=== PATIENT | female | born 1985 | race Caucasian/White ===

== ENCOUNTER 2017-05-04 09:48 | Emergency (ER) | payer OTHER ==
--- NOTE | 2017-05-04 11:06 | RAD ---
Indication: Lateral RIGHT knee pain following rugby injury. Pain and decreased range of motion. Comparison: No relevant prior exams available on the [facility] PACS for comparison. Technique: AP and lateral views RIGHT knee. Report: Small joint effusion. No cortical disruption or suspicious trabecular irregularity to suggest fracture. Unremarkable soft tissue contours. IMPRESSION: Small joint effusion without additional finding.
[2017-05-04 11:46] VITALS: BP 113/64
--- NOTE | 2017-05-04 11:51 | ED ---
Lower Extremity - HPI Summary HPI Summary: Patient is a 32yo presenting with right knee pain after hyperextending the knee yesterday afternoon during a game of rubgy. She states she was able to walk on it immediately after until about 30 minutes later. At which time while she continued to play, the knee "gave out" on her and she has been unable to ambulate since. She feels laxity in the joint and pain over the lateral knee while standing, and denies pain while at rest. Multiple bruises noted over bilateral legs. She denies any other pain. Denies hip or ankle injury. Pulses +2 bilaterally and cap refill < 2 sec. Denies numbness, tingling, or temperature changes to the area. She is otherwise healthy. Has never injured the knee before. Denies previous surgeries on her extremities. Thorough physical exam was performed, focusing on knee special tests. Pain on palpation over lateral aspect and superior aspect of knee with mild amount of effusion. Due to patient pain around injury, physical exam was limited. Valgus and varus force without pain. No posterior sag sign, -posterior drawer test, - anterior drawer test. Quadriceps active test negative. Mcmurrys test not performed d/ t patients instability. Laxity in the joint noted. No lesion or disruption of skin is seen. Unable to bear weight. - History of Current Complaint Chief Complaint: EDExtremityLower Stated Complaint: RIGHT KNEE PAIN Time Seen by Provider: 05/04/17 10:05 Hx Obtained From: Patient Mechanism Of Injury: Twisted Onset of Pain: Immediate Onset/Duration: Days Severity Initially: Mild Severity Currently: Mild Pain Intensity: 2 Pain Scale Used: 0-10 Numeric Timing: Constant Location: Is Discrete @ - right knee Character Of Pain: Aching Associated Signs And Symptoms: Positive: Swelling, Bruising Aggravating Factor(s): Standing, Ambulation, Movement, Weight Bearing Alleviating Factor(s): Rest, Elevation Able to Bear Weight: No - Risk Factors Gout Risk Factors: Negative DVT Risk Factors: Negative Septic Arthritis Risk Factor: Negative PMH/Surg Hx/FS Hx/Imm Hx Previously Healthy: Yes Respiratory History: Reports: Hx Asthma - uses inhaler infrequently Psychiatric History: Reports: Hx Depression - no meds - Immunization History Hx Pertussis Vaccination: No Immunizations Up to Date: Unable to Obtain/Confirm Infectious Disease History: No Infectious Disease History: Denies: Traveled Outside the [place] in Last 30 Days - Social History Occupation: Employed Full-time Lives: With Family Alcohol Use: None Hx Substance Use: No Substance Use Type: Reports: None Hx Tobacco Use: No Smoking Status (MU): Never Smoked Tobacco Review of Systems Constitutional: Negative Negative: Fever, Chills, Fatigue ENT: Negative Cardiovascular: Negative Negative: Shortness Of Breath, Cough Negative: Abdominal Pain, Vomiting Positive: see HPI Positive: Arthralgia - right knee pain with laxity Positive: Bruising Neurological: Negative All Other Systems Reviewed And Are Negative: Yes Physical Exam Triage Information Reviewed: Yes Vital Signs On Initial Exam: Initial Vitals Temp Pulse Resp BP Pulse Ox 98.2 F 72 15 99/65 99 05/04/17 09:49 05/04/17 09:49 05/04/17 09:49 05/04/17 09:49 05/04/17 09:49 Vital Signs Reviewed: Yes Appearance: Positive: Well-Appearing, Well-Nourished Skin: Positive: Warm, Skin Color Reflects Adequate Perfusion Head/Face: Positive: Normal Head/Face Inspection Eyes: Positive: EOMI, EL, Conjunctiva Clear Respiratory/Lung Sounds: Positive: Clear to Auscultation, Breath Sounds Present Cardiovascular: Positive: Normal, RRR, Pulses are Symmetrical in both Upper and Lower Extremities Diagnostics - Vital Signs Vital Signs Temp Pulse Resp BP Pulse Ox 05/04/17 11:45 99.1 F 72 16 113/64 05/04/17 09:49 98.2 F 72 15 99/65 99 - Laboratory Lab Statement: Any lab studies that have been ordered have been reviewed, and results considered in the medical decision making process. Lower Extremity Course/Dx - Course Course Of Treatment: Patient sent to imaging. Xray negative for fracture or other acute findings. Soft tissue swelling noted over the knee. Knee was christ wrapped to patient comfort to allow for immobilization for this period of time. Possibility of ACL or MCL tear d/t location of the pain. Anterior drawer negative but with mild laxity noted. Patient is to be non-weight bearing until follow up with ortho. Crutches given. Patient given orthopedic follow up in 5- 7 days. Encouraged Ibuprofen 600mg three times daily with meals for pain. Return precautions given. Educated patient regarding knee injuries and healing time and the possibility of further evaluation and imaging as orthopedist sees fit. Follow up with Dr. Rondon given. - Diagnoses Differential Diagnosis/HQI/PQRI: Positive: Fracture (Closed), Fracture (Open), Sprain, Strain Provider Diagnoses: Knee pain - Physician Notifications Instructed by Provider To: Have Pt Call For Appt. - DR. Rondon Discharge - Discharge Plan Condition: Stable Disposition: HOME Patient Education Materials: ACL Injury (ED), Knee Immobilizer (ED) Referrals: Hailey Rondon MD [Medical Doctor] - Non Staff,Doctor [Primary Care Provider] - Additional Instructions: Crutches for ambulation given. Ibuprofen 600mg three times daily with meals for pain. Follow up with orthopedic physician in 1-3 days. If numbness, tingling, decreased sensation, increased pain, temperature changes or pallor noted in toes, come back to ER immediately. Protect the area. Do not bear weight. Rest the involved area, but not too long. You may need to be off your injury for some time to allow for healing, however excessive immobilization of joints can lead to stiffness and delay healing time. Early mobilization is encouraged if it is pain-free. Ice. Not directly on the skin. Cover with a towel. Apply ice no more than 30 minutes at a time Elevate: Try to elevate the injured area above the heart whenever possible.
== END 2017-05-04 11:45 | disposition home or self-care (01) ==
LOC: ED 09:48
DX: M25.561 Pain in right knee (principal)
CPT/HCPCS: 99282